=== PATIENT | female | born 1945 | race Caucasian/White ===

== ENCOUNTER 2018-10-15 15:04 | Emergency (ER) | payer SELFPAY ==
--- NOTE | 2018-10-15 15:19 | PDOC ---
History of Present Illness - General Chief Complaint: Injury Stated Complaint: LACERATION Time Seen by Provider: 10/15/18 15:13 - History of Present Illness Initial Comments: 10/15/18 15:15 Ms. Louis is a 72 yo female w/ pmh of anxiety and HLD who presents for evaluation s/p fall earlier today. Patient is accompanied by daughter who confirms she did not lose conciousness and is at her baseline at this current time. Patient otherwise has no complaints. Reports her tetanus was update a few months ago for prophylaxis. The patient denies chest pain, shortness of breath, headache and dizziness. Denies fever, chills, nausea, vomit, diarrhea and constipation. Denies dysuria, frequency, urgency and hematuria. Past History - Past Medical History Allergies/Adverse Reactions: Allergies Allergy/AdvReac Type Severity Reaction Status Date / Time No Known Allergies Allergy Verified 10/15/18 15:53 Home Medications: Ambulatory Orders Unobtainable 10/15/18 Review of Systems - Review of Systems Comments:: 10/15/18 15:19 GENERAL/CONSTITUTIONAL: No fever or chills. No weakness. HEAD, EYES, EARS, NOSE AND THROAT: No change in vision. No ear pain or discharge. No sore throat. CARDIOVASCULAR: No chest pain or shortness of breath RESPIRATORY: No cough, wheezing, or hemoptysis. GASTROINTESTINAL: No nausea, vomiting, diarrhea or constipation. GENITOURINARY: No dysuria, frequency, or change in urination. MUSCULOSKELETAL: No joint or muscle swelling or pain. No neck or back pain. SKIN: No rash NEUROLOGIC: No headache, vertigo, loss of consciousness, or change in strength/ sensation. ENDOCRINE: No increased thirst. No abnormal weight change HEMATOLOGIC/LYMPHATIC: No anemia, easy bleeding, or history of blood clots. ALLERGIC/IMMUNOLOGIC: No hives or skin allergy. *Physical Exam - Physical Exam Comments: 10/15/18 15:19 GENERAL: Awake, alert, and fully oriented, in no acute distress HEAD: +3 lacerations noted. Approx. 4cm long 1cm deep laceration noted to right forehead Superior to this 3cm jagged 1/2 cm laceration also noted. Small 1/2 cm laceration noted to R lateral eyebrow. EYES: PERRLA, EOMI, sclera anicteric, conjunctiva clear ENT: Auricles normal inspection, hearing grossly normal, nares patent, oropharynx clear without exudates. Moist mucosa NECK: Normal ROM, supple, no lymphadenopathy, JVD, or masses LUNGS: No distress, speaks full sentences, clear to auscultation bilaterally HEART: Regular rate and rhythm, normal S1 and S2, no murmurs, rubs or gallops, peripheral pulses normal and equal bilaterally. ABDOMEN: Soft, nontender, normoactive bowel sounds. No guarding, no rebound. No masses EXTREMITIES: Normal inspection, Normal range of motion, no edema. No clubbing or cyanosis. NEUROLOGICAL: Cranial nerves II through XII grossly intact. Normal speech, normal gait, no focal sensorimotor deficits SKIN: Warm, Dry, normal turgor, no rashes or lesions noted. Procedures - Laceration/Wound Repair Right Upper Face Wound Length: 2.6 to 5.0 cm Wound Explored: clean Wound's Depth, Shape: superficial, irregular Irrigated w/ Saline: Yes Betadine Prep: No Anesthesia: 2% Lidocaine w/ Epi Amount of Anesthetic (ccs): 10 Wound Debrided: minimal Wound Repaired With: Sutures Suture Size/Type: 5:0 Number of Sutures: 15 (7, 7, and 1 sutures) Layer Closure: No Sterile Dressing Applied: Yes Splint Applied: No Medical Decision Making - Medical Decision Making 10/15/18 15:44 Ms. Louis is a 72 yo female w/ pmh as described who presents s/p fall for laceration evaluation. Head/c-spine CT ordered for further evaluation. Patient is up to date on tetanus vaccination and does not require a booster. 10/15/18 17:50 Patient lacerations repaired without complication as above. Patient instructed to return in 5-7 days for suture removal. CT Head / CT C-Spine negative for acute process. Discharging patient to home for further outpatient follow-up. *DC/Admit/Observation/Transfer Diagnosis at time of Disposition: Laceration - Discharge Dispostion Disposition: HOME - Referrals - Patient Instructions Printed Discharge Instructions: DI for Suture Removal Additional Instructions: Ms. Louis was evaluated today in the Emergency Room after her fall. We evaluated her with CT scan and found no concerning findings. Her wound was cleaned and closed with sutures without difficulty. Please follow-up in 5-7 days for suture removal. She may take tylenol at home per package instructions for pain control. Return to ER if any fevers, chills, altered mental status, or other concerning symptoms. - Post Discharge Activity
--- NOTE | 2018-10-15 15:35 | PDOC ---
Attending Attestation - Resident Resident Name: Roberto Mark - ED Attending Attestation I have performed the following: I have examined & evaluated the patient, The case was reviewed & discussed with the resident, I agree w/resident's findings & plan, Exceptions are as noted - HPI HPI: 10/15/18 16:27 Ms Louis is a 72 yo F who presents to the ER with family s/p mechanical fall. Pt states, she was in her usual state of health She was going up the stairs and missed a step She fell backwards, struck her right shoulder and hit her forehead on the balustraudes No LOC No amnesia No neck pain No focal weakness or numbness - Physicial Exam PE: 10/15/18 17:08 (+) head trauma Right forehead 2.5 cm laceration through skin and dermis Also, v shaped laceration above this laceration EOMI, PERRL RRR Lungs CTA No abd tenderness to palpation No lower extremity deformities - Medical Decision Making 10/15/18 17:09 CT head Boostrix Xray shoulder (however this is not necessary as pt is able to range shoulder) Motrin D/c to home
[2018-10-15] MEDS ORDERED: LIDOCAINE 1%/EPI 1:100000 (20 ML MULTI DOSE VIAL) IJ ONE (15:40)
[2018-10-15 15:53] VITALS: BP 143/71; PULSE 68; TEMP 98.2; BMI 24.2
[2018-10-15] MEDS ORDERED: LIDO 2%/EPI 1:200000 PRESRVFRE (20 ML SDVIAL) ONE (16:31)
[2018-10-15] MEDS ORDERED: ACETAMINOPHEN 325 MG TABLET (FP) PO ONE (17:40)
[2018-10-15] MEDS ORDERED: ACETAMINOPHEN 325 MG TABLET (FP) ONE (17:44)
== END 2018-10-15 17:54 | disposition home or self-care (01) ==
LOC: FER 15:04
PROC: 0HQ1XZZ Repair Face Skin, External Approach (ICD-10-PCS; principal; 2018-10-15)
DX: S01.81XA Laceration without foreign body of other part of head, initial encounter (principal); E78.5 Hyperlipidemia, unspecified; F41.9 Anxiety disorder, unspecified
CPT/HCPCS: 70450-TC; 72125-TC; 99282-25

== ENCOUNTER 2018-10-22 14:55 | Emergency (ER) | payer SELFPAY ==
[2018-10-22 14:58] VITALS: BP 128/60; PULSE 77; TEMP 97.9; BMI 24.4
--- NOTE | 2018-10-22 15:11 | PDOC ---
History of Present Illness <Josué Galindo - Last Filed: 10/22/18 15:21> - General History Source: Patient Exam Limitations: No Limitations - History of Present Illness Initial Comments: 10/22/18 15:12 72 year old female presented to ED for suture removal. Pt was seen and evaluated 10/15 for slip and fall involving head injury, CT head and CT c-spine showed no acute changes, pt was discharged. Pt has no complaints. <Rhina Garcia - Last Filed: 10/22/18 15:24> - General Chief Complaint: Suture/Staple Removal(Here) Stated Complaint: SUTURE REMOVAL Time Seen by Provider: 10/22/18 15:10 Past History <Josué Galindo - Last Filed: 10/22/18 15:21> - Past Medical History COPD: No Hypercholesterolemia: Yes Psychiatric Problems: Yes (ANXIETY) - Immunization History Immunization Up to Date: Yes - Suicide/Smoking/Psychosocial Hx Smoking History: Never smoked Have you smoked in the past 12 months: No Hx Alcohol Use: No Drug/Substance Use Hx: No Substance Use Type: None <Rhina Garcia - Last Filed: 10/22/18 15:24> - Past Medical History Allergies/Adverse Reactions: Allergies Allergy/AdvReac Type Severity Reaction Status Date / Time No Known Allergies Allergy Verified 10/22/18 14:56 Home Medications: Ambulatory Orders Unobtainable 10/15/18 Review of Systems - Review of Systems Able to Perform ROS?: Yes Comments:: 10/22/18 15:12 General: denied fever, chills, night sweats, generalized weakness. HEENT: denied sore throat, rhinorrhea, ear pain. Heart: denied chest pain, palpitations, syncope, lower extremity swelling, diaphoresis. Respiratory: denied shortness of breath, cough, sputum production, hemoptysis. Abdomen: denied abdominal pain, nausea, vomiting, diarrhea, constipation, blood in stool. : denied dysuria, increased urinary frequency, hematuria, urinary incontinence , flank pain. Back: denied back pain. Musculoskeletal: denied joint pain, muscle pain, joint swelling. Neurological: denied headache, dizziness, numbness, tingling, weakness. Skin: admitted to sutures. <Rhina Garcia - Last Filed: 12/05/18 15:24> *Physical Exam - Vital Signs Last Vital Signs Temp Pulse Resp BP Pulse Ox 97.9 F 77 16 128/60 100 10/22/18 14:55 10/22/18 14:55 10/22/18 14:55 10/22/18 14:55 10/22/18 14:55 <Josué Galindo - Last Filed: 10/22/18 15:21> - Vital Signs Last Vital Signs Temp Pulse Resp BP Pulse Ox 97.9 F 77 16 128/60 100 10/22/18 14:55 10/22/18 14:55 10/22/18 14:55 10/22/18 14:55 10/22/18 14:55 - Physical Exam Comments: 10/22/18 15:13 Constitutional: Well-nourished, Well-developed, appearing stated age. HEENT: head is normocephalic, atraumatic. EOMI. PERRLA. Neck: supple. Full ROM. Heart: regular rhythm. no murmurs, rubs or gallops. Lungs: clear to auscultation bilaterally. no crackles, rhonchi or wheezing. no stridor. Abdomen: soft, nontender. normal bowel sounds. no rebound, guarding, masses. Extremities: Peripheral pulses intact. No lower extremity edema. Neurological: CN 2-12 grossly intact. Moves all four extremities. Psych: awake, alert, oriented x3. Follows commands. Answers questions appropriately. SKIN: 3.5 cm healed laceration to right forehead with 7 sutures. 1 cm laceration to right forehead with 1 suture. 3.5 cm laceration with 7 sutures to right forehead. no discharge. no surrounding erythema. no tenderness. <Rhina Garcia - Last Filed: 10/22/18 15:24> Moderate Sedation - Procedure Monitoring Vital Signs: Procedure Monitoring Vital Signs Temperature 97.9 F 10/22/18 14:55 Pulse Rate 77 10/22/18 14:55 Respiratory Rate 16 10/22/18 14:55 Blood Pressure 128/60 10/22/18 14:55 O2 Sat by Pulse Oximetry (%) 100 10/22/18 14:55 <Josué Galindo - Last Filed: 10/22/18 15:21> - Procedure Monitoring Vital Signs: Procedure Monitoring Vital Signs Temperature 97.9 F 10/22/18 14:55 Pulse Rate 77 10/22/18 14:55 Respiratory Rate 16 10/22/18 14:55 Blood Pressure 128/60 10/22/18 14:55 O2 Sat by Pulse Oximetry (%) 100 10/22/18 14:55 <Rhina Garcia - Last Filed: 10/22/18 15:24> Medical Decision Making - Medical Decision Making 10/22/18 15:15 72 year old female with above PMH presented to ED for suture removal. Lacerations appear well healed, no signs of infection. No systemic symptoms. Initial Vital Signs Temp Pulse Resp BP Pulse Ox 97.9 F 77 16 128/60 100 10/22/18 14:55 10/22/18 14:55 10/22/18 14:55 10/22/18 14:55 10/22/18 14:55 Afebrile. No tachycardia. No tachypnea. No hypertension. No hypoxia on room air. Sutures were removed with a suture removal kit without difficulty. Bacitracin was applied over top, and gauze applied over top. Pt to be discharged. <Rhina Garcia - Last Filed: 10/22/18 15:24> *DC/Admit/Observation/Transfer - Discharge Dispostion Decision to Admit order: No <Josué Galindo - Last Filed: 10/22/18 15:21> - Discharge Dispostion Decision to Admit order: No <Rhina Garcia - Last Filed: 10/22/18 15:24> Diagnosis at time of Disposition: Visit for suture removal - Discharge Dispostion Disposition: HOME Condition at time of disposition: Improved - Patient Instructions Printed Discharge Instructions: DI for Suture Removal Additional Instructions: You were seen today for suture removal. Return to the Emergency Department for discharge from the wound site, separation of the wound, fever, chills, vomiting or any other new, worsening or concerning symptoms.
--- NOTE | 2018-10-22 15:38 | PDOC ---
Attending Attestation - Resident Resident Name: RadhaRhina - ED Attending Attestation I have performed the following: I have examined & evaluated the patient, The case was reviewed & discussed with the resident, I agree w/resident's findings & plan, Exceptions are as noted - HPI HPI: 10/22/18 15:36 Presents for suture removal. Facial laceration repaired 7 days ago. No pain, redness, swelling, or discharge. Patient has no complaint - Physicial Exam PE: 10/22/18 15:37 Multiple sutures of the forehead and eyebrow are well-healed. No erythema, induration, warmth, swelling, or drainage. Sutures intact, edges well approximated, and flat suture line. - Medical Decision Making 10/22/18 15:37 Assessment: Facial laceration, well-healed Plan: Sutures removed. Bacitracin to keep moist and covered for another week until healing complete. Fully ambulatory and in no distress upon discharge with family to follow-up as needed.
== END 2018-10-22 15:42 | disposition home or self-care (01) ==
LOC: FER 14:55
DX: Z48.02 Encounter for removal of sutures (principal)
CPT/HCPCS: 99281-25

== ENCOUNTER 2025-03-28 18:21 | Inpatient (IN) | payer OTHER ==
[2025-03-28 20:02] LABS: EPI CELLS 1 /uL (0-25.1); HYALINE CASTS 0 /uL (0-3.1); PH,URINE 5.5 (5.0-8.0); URINE APPEARANCE CLEAR; URINE BACTERIA 2 /uL (0-1359); URINE BILIRUBIN NEGATIVE (NEGATIVE); URINE COLOR YELLOW; URINE GLUCOSE (UA) NEGATIVE (NEGATIVE); URINE KETONE NEGATIVE (NEGATIVE); URINE LEUK ESTERASE 2+ (NEGATIVE); URINE NITRITE NEGATIVE (NEGATIVE); URINE PROTEIN NEGATIVE (NEGATIVE); URINE RBC 310 /uL (0-23.9); URINE UROBILINOGEN 0.2 mg/dL (0.2-1.0); URINE WBC 67 /uL (0-25.8)
[2025-03-28 20:16] LABS: ABSOLUTE IMMATURE GRANULOCYTES 0.03 x10^3/uL (0.0-0.031); BASOPHILS # 0.02 x10^3/uL (0.01-0.08); EOSINOPHIL % 4.1 % (0.7-5.8); EOSINOPHILS # 0.27 x10^3/uL (0.04-0.36); HEMATOCRIT 29.7 % (34.1-44.9); HEMOGLOBIN 9.3 g/dL (11.2-15.7); MCHC 31.3 g/dl (32.2-35.5); MEAN CELL VOLUME 92.8 fl (79.4-94.8); MEAN PLT VOLUME 9.4 fl (9.4-12.3); MONOCYTE # 0.56 x10^3/uL (0.24-0.86); MONOCYTE % 8.5 % (4.7-12.5); PLATELET COUNT 227 x10^3/uL (182-369); RDW 12.5 % (12.4-16.6)
[2025-03-28 20:21] LABS: INR 1.24 (0.83-1.09); PROTHROMBIN TIME (PATIENT) 13.5 SEC (9.7-13.0)
[2025-03-28 20:32] LABS: POTASSIUM 4.1 mmol/L (3.5-5.1)
[2025-03-28 20:34] LABS: CALCIUM 8.9 mg/dL (8.5-10.1)
[2025-03-28 20:35] LABS: BLOOD UREA NITROGEN 26.3 mg/dL (7-18)
[2025-03-28 20:39] LABS: BILIRUBIN,TOTAL 0.3 mg/dL (0.2-1)
[2025-03-28 20:40] LABS: TOT PROT 6.4 g/dl (6.4-8.2)
[2025-03-28] MEDS ORDERED: ONDANSETRON *ODT* 4 MG TABLET SL PRN (21:02)
[2025-03-28 21:22] LABS: Reticulocyte % 1.42 % (0.5-1.7)
[2025-03-28] MEDS ORDERED: DOCUSATE SODIUM 100 MG CAPSULE (FP) PO PRN (21:26)
[2025-03-28] MEDS ORDERED: ONDANSETRON 4 MG/2 ML VIAL IVPUSH PRN (21:26)
[2025-03-28] MEDS ORDERED: oxyCODONE HCL 5 MG TABLET PO PRN (21:26)
[2025-03-28] MEDS ORDERED: ACETAMINOPHEN 1000 MG/100 ML BAG IVPB PRN (21:27)
[2025-03-28] MEDS ORDERED: ACETAMINOPHEN 325 MG TABLET (FP) PO PRN ×2 (21:27→21:42)
[2025-03-28] MEDS ORDERED: KETOROLAC TROMETHAMINE 15 MG/ML VIAL IVPUSH PRN (21:41)
[2025-03-28 22:46] LABS: ABSOLUTE IMMATURE GRANULOCYTES 0.02 x10^3/uL (0.0-0.031); BASOPHILS # 0.02 x10^3/uL (0.01-0.08); EOSINOPHIL % 4.6 % (0.7-5.8); EOSINOPHILS # 0.29 x10^3/uL (0.04-0.36); HEMATOCRIT 28.8 % (34.1-44.9); MCHC 31.3 g/dl (32.2-35.5); MEAN CELL VOLUME 93.2 fl (79.4-94.8); MEAN PLT VOLUME 9.4 fl (9.4-12.3); MONOCYTE # 0.46 x10^3/uL (0.24-0.86); MONOCYTE % 7.2 % (4.7-12.5); PLATELET COUNT 214 x10^3/uL (182-369); RDW 12.6 % (12.4-16.6)
[2025-03-28 23:43] VITALS: BMI 25.8
[2025-03-29] MEDS ORDERED: IRON SUCROSE INJECTION 200 MG in SODIUM CHLORIDE 100 ML IVPB ONE ×2 (08:00→18:50)
[2025-03-29] MEDS: TAMSULOSIN HCL 0.4 MG CAP PO SCH (08:22)
[2025-03-29 08:25] LABS: HEMATOCRIT 31.2 % (34.1-44.9); HEMOGLOBIN 9.7 g/dL (11.2-15.7); MCHC 31.1 g/dl (32.2-35.5); MEAN CELL VOLUME 92.6 fl (79.4-94.8); MEAN PLT VOLUME 9.6 fl (9.4-12.3); PLATELET COUNT 232 x10^3/uL (182-369); RDW 12.7 % (12.4-16.6)
[2025-03-29 08:45] LABS: POTASSIUM 4.2 mmol/L (3.5-5.1)
[2025-03-29 08:51] LABS: ALBUMIN 2.8 g/dl (3.4-5.0); BLOOD UREA NITROGEN 21.2 mg/dL (7-18); CALCIUM 8.9 mg/dL (8.5-10.1)
[2025-03-29 08:54] LABS: CREATININE 0.8 mg/dL (0.55-1.3)
[2025-03-29 08:55] LABS: PHOSPHOROUS 3.4 mg/dL (2.5-4.9)
[2025-03-29 08:56] LABS: BILIRUBIN,TOTAL 0.3 mg/dL (0.2-1); TOT PROT 6.1 g/dl (6.4-8.2)
[2025-03-29] MEDS: IRON SUCROSE INJECTION 200 MG in SODIUM CHLORIDE 100 ML IVPB ONE (09:06)
[2025-03-29] MEDS: ENOXAPARIN NA (PORCINE) 40 MG/0.4 ML DISP.SYRIN SQ SCH (10:56)
[2025-03-29] MEDS ORDERED: LEVOTHYROXINE NA 50 MCG TABLET (FP) PO SCH (11:39)
[2025-03-29] MEDS: LEVOTHYROXINE NA 50 MCG TABLET (FP) PO SCH ×2 (12:06→12:14)
[2025-03-29] MEDS ORDERED: PROPOFOL 40 ML ONE (17:55)
[2025-03-29] MEDS ORDERED: SUCCINYLCHOLINE CHLORIDE 200 MG/10 ML SYRINGE ONE (17:56)
[2025-03-29] MEDS: GENTAMICIN SO4 80 MG/2 ML VIAL IVPB ONE (18:11)
[2025-03-29] MEDS: LACTATED RINGERS SOLUTION 1,000 ML IV SCH (18:48)
[2025-03-29] MEDS ORDERED: KETOROLAC TROMETHAMINE 15 MG/ML VIAL IVPUSH PRN (18:50)
[2025-03-29] MEDS ORDERED: oxyCODONE HCL 5 MG TABLET PO PRN (18:50)
[2025-03-29] MEDS ORDERED: ACETAMINOPHEN 325 MG TABLET (FP) PO PRN (18:50)
[2025-03-29] MEDS ORDERED: DOCUSATE SODIUM 100 MG CAPSULE (FP) PO PRN (18:50)
[2025-03-29] MEDS ORDERED: ONDANSETRON 4 MG/2 ML VIAL IVPUSH PRN (18:50)
[2025-03-29 19:50] VITALS: TEMP 97.7
[2025-03-29 19:51] VITALS: BP 142/61; PULSE 64; RESP 20
[2025-03-30] MEDS ORDERED: LEVOTHYROXINE NA 50 MCG TABLET (FP) PO SCH (07:00)
== END 2025-03-29 21:13 | disposition home or self-care (01) | DRG 661 ==
LOC: JER 18:21 → JERBED 18:56 → J6S 23:25
PROVIDERS: ADMIT Student in an Organized Health Care Education/Training Program; ATTEND Internal Medicine
PROC: 0T778DZ Dilation of Left Ureter with Intraluminal Device, Via Natural or Artificial Opening Endoscopic (ICD-10-PCS; principal; 2025-03-29 18:00)
PROC: BT1FZZZ Fluoroscopy of Left Kidney, Ureter and Bladder (ICD-10-PCS; 2025-03-29 18:00)
DX: N13.2 Hydronephrosis with renal and ureteral calculous obstruction (principal); I10 Essential (primary) hypertension; E78.5 Hyperlipidemia, unspecified; D50.9 Iron deficiency anemia, unspecified; E03.9 Hypothyroidism, unspecified
CPT/HCPCS: 36415; 80053; 81003; 82607; 82728; 82746; 83540; 83550; 83735; 84100; 85025; 85027; 85610; 86850; 86900; 86901; 87086; 93005; 93010; 94760; 99285-25; C1758; C2617; J1756